=== PATIENT | male | born 1945 | race Caucasian/White ===

== ENCOUNTER 2016-08-08 06:53 | Outpatient (CLI) | payer MEDICARE, OTHER ==
[~2016-08-08] VITALS: Ht 167.6 cm; Wt 89.1 kg
--- NOTE | ~2016-08-08 | HEMODYNAMI ---
PATIENT:ROSIBEL MCCOY MEDICAL RECORD: [id number] : 47 LOCATION:[facility] ADMISSION DATE: 08/08/16 Generatedon:08/08/20169:22 Patient name: ROSIBEL MCCOY Patient #: [id number] : 1945 Date of study: 08/08/2016 Page: Of Hemodynamic Procedure Report Patient Data Patient Demographics Procedure consent was obtained First Name: ROSIBEL Gender: Male Last Name: DARIUS : 1945 Middle Initial: TERESA Age: 71 year(s) Patient #: [id number] Race: SSN: [id number] Additional ID: [id number] Contact details Address: [address] [place] [address] State: [place] City: [place] Zip code: [address] Past Medical History Allergies: No known allergies Admission Admission Data Admission Date: 08/08/2016 Admission Time: 6:53 Arrival Date: 08/08/2016 Arrival Time: 0:00 Admit Source: Other Insurance Payor: Medicare Height (in.): 67 BSA: 2.01 (m2) Height (cm.): 170.18 BMI: 30.85 (kg/m2) Weight (lbs.): 197 Weight (kg.): 89.36 Lab Results Lab Result Date: 08/08/2016 Lab Result Time: 0:00 Biochemistry Name Units Result Min Max BUN mg/dl 24 --(----)-* 7 18 Creatinine mg/dl 1.1 --(--*-)-- 0.6 1.3 CBC Name Units Result Min Max Hemoglobin g/dl 31.9 --(----)-* 13.5 17.5 Procedure Procedure Types Cath Procedure Diagnostic Procedure [facility] w/Coronaries PCI Procedure Coronary Stent Initial Miscellaneous Procedures Moderate Sedation up to 15 minutes Procedure Description Procedure Date Procedure Date: 08/08/2016 Procedure Start Time: 9:04 Procedure End Time: 9:19 Procedure Staff Name Function Tico Roberson MD Performing Physician Tima Puentes RT Scrub Doris Newman RN Nurse Tunde Lagunas RT Professional Skateboarder Shirin Pinzon RT Monitor Procedure Data Cath Procedure Fluoroscopy Diagnostic fluoroscopy Total fluoroscopy Time: 2.7 time: 2.7 min min Diagnostic fluoroscopy Total fluoroscopy dose: 288 dose: 288 mGy mGy Contrast Material Contrast Material Type Amount (ml) Isovue 300 87 Entry Location Entry Primary Successful Side Size Upsize Upsize Entry Closure Succes sful Closure Location (Fr) 1 (Fr) 2 (Fr) Remarks Device Remarks Femoral Right 5 Fr 6 Fr artery Short Estimated blood loss: 10 ml Diagnostic catheters Device Type Used For End Catheter Placement Cordis 5Fr Pigtail Procedure Catheter (MP) Cordis 5Fr JL 4.0 Procedure Catheter (MP) Cordis 5Fr 3DRC Catheter Procedure (MP) Procedure Complications No complications Procedure Medications Medication Administration Route Dosage Oxygen NC 2 l/min Heparin Flush Bag added to field 2 bags (1000units/500ml NS) Lidocaine 2% added to field 20 Versed I.V. 1 mg Fentanyl I.V. 50 mcg Versed I.V. 0.5 mg Fentanyl I.V. 25 mcg Heparin Bolus I.V. 4000 units Hemodynamics Rest BSA: 2.01 (m2) HGB: 31.9 (g/dl) O2 Consumption: Estimated: 273.36 (ml/min) O2 Co nsumption indexed: Estimated:136 (ml/min/m) Heart Rate: 0 (bpm) Snapshots Pre Cath Intra NCS Post Cath Vital Signs Time Heart Resp SPO2 NIBP (mmHg) Rhythm Pain Sedation Rate (ipm) (%) Status Level (bpm) 8:49:27 58 22 97 Measuring NSR 0 (11) 10(A) , No pain 8:50:21 57 19 97 189/93(112) NSR 0 (11) 10(A) , No pain 8:55:01 56 16 97 195/93(155) NSR 0 (11) 10(A) , No pain 8:59:29 56 18 96 165/90(139) NSR 0 (11) 10(A) , No pain 9:03:47 55 28 95 160/92(124) NSR 0 (11) 9(A) , No pain 9:08:04 59 17 96 149/99(122) NSR 0 (11) 9(A) , No pain 9:12:19 61 16 96 148/93(110) NSR 0 (11) 9(A) , No pain 9:17:19 65 20 95 Measuring NSR 0 (11) 9(A) , No pain 9:17:23 65 21 96 134/90(108) NSR 0 (11) 9(A) , No pain Medications Time Medication Route Dose Verified Delivered Reason Notes Effectiveness by by 8:47:50 Oxygen NC 2 Tico Doris Per physician l/min Karol Newman RN 8:47:57 Heparin Flush added 2 [place] used for Bag to bags Karol Roberson MD procedure (1000units/500ml field NS) 8:48:04 Lidocaine 2% added 20ml [place] used for to vial Karol Roberson MD procedure field 9:00:58 Versed I.V. 1 mg Tico Doris for sedation Karol Newman RN 9:01:14 Fentanyl I.V. 50 Tico Doris for sedation mcg Karol Newman RN 9:03:28 Versed I.V. 0.5 Tico Doris for sedation mg Karol Newman RN 9:03:36 Fentanyl I.V. 25 Tico Doris for sedation mcg Karol Newman RN 9:08:56 Heparin Bolus I.V. 4000 Tico Doris for dose units Karol Newman RN anticoagulation verified wt dr roberson Procedure Log Time Note 8:39:15 Arrival Date: 08/08/2016 12:00:00 AM 8:39:21 Admit Source: Other 8:39:47 Patient Height : 170.18 inches 8:40:03 Patient Weight : 89.36 lbs 8:40:04 Insurance Payor : Medicare 8:41:47 Diagnostic Cath status Elective 8:41:52 Tunde MOFFETT(R) sent for patient. Start room use. 8:41:53 Time tracking: Regular hours 8:42:01 Plan of Care:Hemodynamics will remain stable., Cardiac rhythm will remain stable., Comfort level will be maintained., Respiratory function will remain adequate., Patient/ family verbilizes understanding of procedure., Procedure tolerated without complication., Recovers from procedure without complications.. 8:42:15 Patient received from Outpatients to CCL 3 Alert and oriented. Tansferred to table in Supine position. 8:42:16 Warm blankets applied, and radha hugger turned on for patient comfort. 8:42:16 Correct patient and procedure confirmed by team. 8:42:19 Signed procedure consent form obtained from patient. 8:42:33 H&P Date Dictated: 08/06/2016 Within 30 days and on chart., H&P Addendum completed by physician on day of procedure. (MUST COMPLETE FOR ALL OUTPATIENTS). 8:42:38 Pre-procedure instructions explained to patient. 8:42:41 Family in waiting room. 8:42:43 Patient NPO since Midnight. 8:42:52 Patient allergic to No known allergies 8:43:35 Is the patient allergic to Iodine/contrast media? No. 8:43:38 Is patient on blood thinner?Yes 8:43:41 ACC The patient was administered the following blood thiners within the last 24 hours: ACCPlavix 8:43:43 Patient diabetic? Yes. 8:43:45 If diabetic: On Metformin? No 8:43:50 Snore? Yes 8:44:11 Patient pain scale 0/10 ?. 8:44:22 IV patent on arrival in left hand with 0.9% NaCl at KVO. 8:45:06 Lab Result : Creatinine 1.1 mg/dl 8:45:06 Lab Result : BUN 24 mg/dl 8:45:06 Lab Result : Hemoglobin 31.9 g/dl 8:45:11 Lab results completed and on chart. 8:45:15 Right groin area was prepped with chlora-prep and draped in sterile fashion 8:45:20 Sharps counted by scrub and verified by R.N. 8:46:06 Sleep apnea? No 8:46:13 Dentures? No ? 8:47:38 Vital chart was started 8:47:39 ECG and BP/O2 sat monitors applied to patient. 8:47:50 Baseline sample Acquired. 8:47:50 Oxygen 2 l/min NC was given by Doris Newman RN; Per physician; 8:47:57 Heparin Flush Bag (1000units/500ml NS) 2 bags added to field was given by Tico Roberson MD; used for procedure; 8:47:57 Full Disclosure recording started 8:48:04 Lidocaine 2% 20ml vial added to field was given by Tico Roberson MD; used for procedure; 8:54:14 Physician paged 9:00:26 Physician arrived 9:00: --------ALL STOP TIME OUT------ 9:00:27 Final Timeout: patient, procedure, and site verified with staff and physician. All members of the team are in agreement. 9:00:30 Right groin site verified by team. 9:00:33 Physical assessment completed. ASA score P 2 - A patient with mild systemic disease as per Tico Roberson MD. 9:00:37 Sedation plan: IV Moderate Sedation Versed, Fentanyl 9:00:42 Zero performed for pressure channel P1 9:00:51 Zero performed for pressure channel P1 9:00:58 Versed 1 mg I.V. was given by Doris Newman RN; for sedation; 9:01:14 Fentanyl 50 mcg I.V. was given by Doris Newman RN; for sedation; 9:03:08 Use device set Femoral Dx 9:03:10 Acist Syringe opened to sterile field. 9:03:10 Bag Decanter opened to sterile field. 9:03:11 Cardinal Cath Pack opened to sterile field. 9:03:11 Terumo 5Fr [place] Sheath opened to sterile field. 9:03:12 St Campbell 260cm J .035 wire opened to sterile field. 9:03:13 Acist Hand Control opened to sterile field. 9:03:14 Acist Manifold opened to sterile field. 9:03:14 Cordis Infinity 5Fr Multipack catheter opened to sterile field. 9:03:15 Tegaderm 4 x 4 opened to sterile field. 9:03:18 Procedure started. 9:03:28 Versed 0.5 mg I.V. was given by Doris Newman RN; for sedation; 9:03:36 Fentanyl 25 mcg I.V. was given by Doris Newman RN; for sedation; 9:04:05 Local anesthetic to right femoral artery with Lidocaine 2% by Tico Roberson MD.INITIAL ACCESS ONLY 9:04:17 A 5 Fr sheath was inserted into the Right Femoral artery 9:05:05 A Cordis 5Fr Pigtail Catheter (MP) was advanced over the wire and used for Procedure. 9:05:09 LV gram done using PLATT 9:05:15 EF : 55 % 9:05:18 Catheter removed. 9:05:23 A Cordis 5Fr JL 4.0 Catheter (MP) was advanced over the wire and used for Procedure. 9:05:47 LCA angiography performed. 9:06:34 Catheter removed. 9:06:45 A Cordis 5Fr 3DRC Catheter (MP) was advanced over the wire and used for Procedure. 9:08:12 Terumo 6Fr [place] Sheath opened to sterile field. 9:08:13 [employer] BasixCompak Inflation Kit opened to sterile field. 9:08:14 Gloria Whisper J 300cm 0.014 guide wire opened to sterile field. 9:08:17 Catheter removed. 9:08:25 Proceeding to intervention. 9:08:50 Procedure type changed to Cath procedure, Diagnostic procedure, LHC, LHC w/Coronaries, PCI procedure, Coronary Stent Initial, Miscellaneous Procedures, Moderate Sedation up to 15 minutes 9:08:56 Heparin Bolus 4000 units I.V. was given by Doris Newman RN; for anticoagulation; dose verified wt dr roberson 9:09:16 Sheath upsized to a 6 Fr Short. 9:12:16 Medtronic Launcher 6Fr EBU 4.5 guide catheter opened to sterile field. 9:12:30 6 Fr ebu 4.5 guide catheter was inserted over the wire 9:12:34 whis wire advanced. 9:13:43 Inflation Number: 1 A Medtronic Resolute 2.5 X 12 stent was prepped and advanced across the Mid LAD. The stent was deployed at 19 MARQUEZ for 0:10 (min:sec). 9:14:00 Vascade 6/7 Fr Closure Device opened to sterile field. 9:14:07 Guide catheter removed. 9:14:18 Procedure ended.(Physican Out) 9:16:16 Fluoroscopy time 02.70 minutes. 9:16:23 Flurop Dose total: 288 9:16:23 Fluoroscopy dose: 288 mGy 9:16:34 Contrast amount:Isovue 300 87ml. 9:16:36 Sharps counted by scrub and verified by R.N. 9:16:38 Insertion/operative site no bleeding no hematoma. 9:16:42 Post-op/insertion site Right Femoral artery dressed using a 4 x 4 and Tegaderm. 9:16:44 Post Procedure Pulses reassessed and unchanged 9:16:48 Post-procedure physical assessment completed. ASA score P 2 - A patient with mild systemic disease as per Tico Roberson MD. 9:16:52 Post procedure rhythm: unchanged. 9:16:55 Estimated blood loss: 10 ml 9:16:57 Post procedure instruction explained to patient.Patient verbalizes understanding. 9:17:07 Procedure and supply charges have been captured, reviewed, submitted and are correct. 9:19:09 Procedure Complication : No complications 9:19:12 Vital chart was stopped 9:19:12 See physician's report for complete and final results. 9:19:14 Report given to Outpatients. 9:19:21 Patient transfered to Outpatients with Stretcher. 9:19:24 Procedure ended. 9:19:24 Full Disclosure recording stopped 9:19:28 End room use (Document Last) Intervention Summary Intervention Notes Time ActionType Lesion and Equipment Action# Pressure Duration Attributes Used 9:13:43 Place stent Mid LAD Medtronic 1 19 00:10 Resolute 2.5 X 12 stent Device Usage Item Name Manufacture Quantity Catalog Hospital Part Current Minima l Lot# / Number Charge Number Stock Stock Serial# Code Acist Acist 1 [id number] [id number] 626121 188879 20 Syringe Medical Systems Inc Bag Microtek 1 [id number] 541718 48799 759218 5 DecNexMed Medical Inc. Cardinal Cardinal 1 [id number] 280400 95443 557432 5 Cath Pack Health Terumo 5Fr Terumo 1 [id number] 035053 211900 114374 [address] Campbell 1 [id number] 863565 931158 012565 30 260cm J .035 wire Acist Hand Acist 1 69823 735891 163836 142433 5 Control Medical Systems Inc Acist Acist 1 50188 630329 941628 092313 5 Manifold Medical Systems Inc Cordis Cardinal 1 [id number] 676375 33272 044961 30 VuCast Media 5Fr Multipack catheter Tegaderm 4 3M 1 1626W 742593 242680 656676 5 x 4 Cordis 5Fr Cardinal 1 681263 5 Pigtail Health Catheter (MP) Cordis 5Fr Cardinal 1 928974 5 JL 4.0 Health Catheter (MP) Cordis 5Fr Cardinal 1 199783 5 3DRC Health Catheter (MP) Terumo 6Fr Terumo 1 [id number] 041280 617375 534272 40 [place] Sheath [facility] 1 [id number] 845803 801853 031761 15 BasixRidePal Medical Inflation Kit Gloria Gloria 1 [id number] 520561 510609 153355 5 Whisper J Vascular 300cm 0.014 guide wire Medtronic Medtronic 1 [id number] 905389 59979 656867 0 Launcher 6Fr EBU 4.5 guide catheter Medtronic Medtronic 1 [id number] 157869 244055 7 [id number] Resolute 2.5 X 12 stent Vascade 12/05 Cardiva 1 [id number] 656721 251918 375653 5 Fr Closure Medical, Device Inc. Signature Audit [facility] Time Signature Unsigned Intra-Procedure 08/08/2016 Shirin Pinzon 9:21:46 AM RT(R) Signatures Monitor : Shirin Pinzon Signature : RT Date : Time : [address] [place] [address]
[~2016-08-08 06:53] MED LIST: BAYER ASPIRIN325 MG PO; BAYER CHEWABLE81 MG PO; CARDURA8 MG PO; CO Q-10100 MG PO; COZAAR100 MG PO; FISH OIL 500 MG1 CAP PO; GLIMEPIRIDE4 MG PO; HYDROCHLOROTHIA25 MG PO; HYDROCODON-ACE1 EAC6 PO; ISOSORBIDE MONO60 M1 PO; LYRICA200 MG PO; MULTIPLE VITAMI1 TA1 PO; NEURONTIN600 MG PO; PLAVIX75 MG PO; PRAVACHOL40 MG PO; RITALIN10 MG PO; RITALIN20 MG PO; TOPROL XL200 MG PO; TRAZODONE HCL150 MG PO; VITAMIN A10000 UNIT PO; VITAMIN B-121000 MCG PO; VITAMIN C1000 MG PO; VITAMIN D10000 UNI1 PO
[2016-08-08] MEDS ORDERED: ZOLOFT100 MG PO (07:19)
[2016-08-08 07:25] VITALS: BP 155/76; Ht 167.6 cm; Wt 89.1 kg
[2016-08-08 07:28] LABS: BASOPHILS 0.5 % (0.0-2.0); EOSINOPHILS 8.4 % (0-7); HEMATOCRIT 31.9 % (42.0-54.0); HEMOGLOBIN 10.7 g/dL (13.5-17.5); IMMATURE GRANULOCYTES 0.3 % (0-5); LYMPHOCYTES 25.5 % (15-50); MCH 32.1 pg (26.0-34.0); MCHC 33.5 g/dL (31.0-37.0); MCV 95.8 fL (80.0-100.0); MEAN PLATELET VOLUME 11.4 fL (7.4-10.4); NEUTROPHILS 54.3 % (40-80); RBC 3.33 10x6/uL (4.20-6.10); RDW 13.6 % (11.5-14.5); WBC 3.8 10x3/uL (4.8-10.8)
[2016-08-08 07:41] LABS: PLATELET COUNT 138 10x3/uL (130-400)
[2016-08-08 07:44] LABS: ANION GAP 13.9 mmol/L (8-16); CALCIUM 8.9 mg/dL (8.5-10.1); CARBON DIOXIDE 24.8 mmol/L (21.0-32.0); CREATININE - SERUM 1.1 mg/dL (0.6-1.3); POTASSIUM - SERUM 3.7 mmol/L (3.5-5.1)
--- NOTE | 2016-08-08 09:45 | NUR ---
0945 HR 58 BP 157/80 CHEST PAIN IS DENIED. 6 FR VASCADE R/GROIN CDI NO BLEEDING NO HEMATOMA NOTED. INSTRUCTED PATIENT TO KEEP HEAD FLAT ON PILLOW WITH RLE STRAIGHT.
--- NOTE | 2016-08-08 10:15 | NUR ---
1015 VSS WITH CHEST PAIN DENIED TOLERATING ORAL FLUIDS WITH NAUSEA DENIED. 6 FR VASCADE R/GROIN CDI NO BLEEDING NO HEMATOMA NOTED WILL MONITOR
--- NOTE | 2016-08-08 10:41 | NUR ---
NO CHANGE IN ASSESSMENT VSS PATIENT SLEEPING QUIELTY WITH EYES CLOSED NO DISTRESS
--- NOTE | 2016-08-08 11:09 | NUR ---
6 FR VASCADE R/GROIN CDI NO BLEEDING NO HEMATOMA NOTED CHEST PAIN IS DENIED WITH VSS WILL MONITOR
--- NOTE | 2016-08-08 12:00 | NUR ---
1200 VSS WITH CHEST PAIN DENIED FAMILY AT SIDE 1300 PIV REMOVED WITH DRESSING APPLIED. 6 FR VASCADE R/GROIN CDI NO BLEEDING NO HEMATOMA NOTED. PATIENT UP TO GET DRESSED FOR DISCHARGE
--- NOTE | 2016-08-08 13:28 | NUR ---
VERBAL AND WRITTEN DISCHARGE GONE OVER WITH PATIENT AND BOTH VERBALIZED UNDERSTANDING. PATIENT HAS ORDERES TO RETURN NEXT WED FOR ANOTHER PROCEDURE. OFFICE NOTIFIED LEFT VIA WC TO PARKING FOR TO DRIVE HOME
--- NOTE | 2016-08-09 13:59 | OP ---
PATIENT NAME: ROSIBEL MCCOY MEDICAL RECORD: [id number] :47 LOCATION:[facility] ADMISSION DATE: SURGEON: LENORE MONTERO MD DATE OF OPERATION: 08/08/2016 PROCEDURES: 1. PTCA stent LAD. 2. Left heart catheterization. 3. Selective coronary angiography. 4. Left ventriculogram. INDICATION: Angina and coronary artery disease. PROCEDURE IN DETAIL: After informed consent was obtained and after detailed explanation of risks, benefits as well as alternative therapies, the patient elected to proceed with angiogram and angioplasty. The right femoral area is prepped and draped in normal sterile fashion. The right femoral artery was cannulated via modified Seldinger technique with placement of 6-Congolese sheath. All catheters exchanged through this sheath. FINDINGS: The left ventriculogram was performed in standard 30-degree PLATT view, reveals good cardiac wall motion throughout all segments. Overall ejection fraction estimated at 55% to 60%. SELECTIVE CORONARY ANGIOGRAPHY: 1. Left main has no significant angiographic disease. 2. Left anterior descending has previously placed stents, these are widely patent; however, there is 90% stenosis after the previously placed stents. 3. The left circumflex has moderate irregularities, but no flow-limiting stenosis. 4. The right coronary has previously placed stents, these are widely patent. However, there is a new 80% to 90% stenosis in the distal vessel. PTCA STENT OF THE LAD: The stent used was a 2.5 x 12 mm Resolute. Result was 0% residual stenosis. OVERALL IMPRESSION: Successful percutaneous transluminal coronary angioplasty stent of the left anterior descending going from 90% initial stenosis to 0% residual. PLAN: For PTCA stent of the RCA in the near future. TRANSINT:[id number] Voice Confirmation ID: [id number] DOCUMENT ID: [id number] LENORE MONTERO MD at 1359 CC: [id number] DICTATION DATE: 08/08/16917 SAIL MAKER: 08/08/1656 [facility] CLI 08/08/[address] [address]
== END 2016-08-08 13:31 | disposition home or self-care (01) ==
LOC: D.CATH 06:53
PROVIDERS: Internal Medicine Interventional Cardiology
DX: I25.119 Atherosclerotic heart disease of native coronary artery with unspecified angina pectoris (principal); R06.02 Shortness of breath; E11.9 Type 2 diabetes mellitus without complications
CPT/HCPCS: 93458; C9600

== ENCOUNTER 2016-08-15 07:28 | Outpatient (CLI) | payer MEDICARE, OTHER ==
[~2016-08-15] VITALS: Ht 170.2 cm; Wt 88.6 kg
--- NOTE | ~2016-08-15 | HEMODYNAMI ---
PATIENT:ROSIBEL MCCOY MEDICAL RECORD: [id number] : 47 LOCATION:[facility] ADMISSION DATE: 08/15/16 Generatedon:08/15/20169:44 Patient name: ROSIBEL MCCOY Patient #: [id number] : 1945 Date of study: 08/15/2016 Page: Of Hemodynamic Procedure Report Patient Data Patient Demographics Procedure consent was obtained First Name: ROSIBEL Gender: Male Last Name: DARIUS : 1945 Middle Initial: TERESA Age: 71 year(s) Patient #: [id number] Race: SSN: [id number] Additional ID: [id number] Contact details Address: [address] [place] [address] State: [place] City: [place] Zip code: [address] Past Medical History Allergies: No known allergies Admission Admission Data Admission Date: 08/15/2016 Admission Time: 7:28 Lab Results Lab Result Date: 08/15/2016 Lab Result Time: 0:00 Biochemistry Name Units Result Min Max BUN mg/dl 22 --(----)-* 7 18 Creatinine mg/dl 1 --(--*-)-- 0.6 1.3 CBC Name Units Result Min Max Hemoglobin g/dl 11.4 *-(----)-- 13.5 17.5 Procedure Procedure Types Cath Procedure Diagnostic Procedure [facility] PCI Procedure Coronary Stent Initial Miscellaneous Procedures Moderate Sedation up to 15 minutes Procedure Description Procedure Date Procedure Date: 08/15/2016 Procedure Start Time: 9:28 Procedure End Time: 9:36 Procedure Staff Name Function Tico Roberson MD Performing Physician Dennis Barron RN Nurse Tima Puentes RT Monitor Farhat Hawley RT Scrub Procedure Data Cath Procedure Fluoroscopy Diagnostic fluoroscopy Total fluoroscopy Time: 1.9 time: 1.9 min min Diagnostic fluoroscopy Total fluoroscopy dose: 168 dose: 168 mGy mGy Contrast Material Contrast Material Type Amount (ml) Isovue 300 48 Entry Location Entry Primary Successful Side Size Upsize Upsize Entry Closure Succes sful Closure Location (Fr) 1 (Fr) 2 (Fr) Remarks Device Remarks Femoral Right 7 Fr Exoseal artery Short Procedure Complications No complications Procedure Medications Medication Administration Route Dosage Oxygen NC 2 l/min Lidocaine 2% added to field 20 Heparin Flush Bag added to field 2 bags (1000units/500ml NS) 0.9% NaCl I.V. 100 ml/hr Versed I.V. 1 mg Fentanyl I.V. 50 mcg Heparin Bolus I.V. 4000 units Versed I.V. 0.5 mg Fentanyl I.V. 25 mcg Hemodynamics Rest HGB: 11.4 (g/dl) Heart Rate: 42 (bpm) Snapshots Pre Cath Intra NCS Post Cath Vital Signs Time Heart Resp SPO2 etCO2 SJ6hbes NIBP (mmHg) Rhythm Pain Sedation Rate (ipm) (%) (mmHg) (mmHg) Status Level (bpm) 9:15:15 61 16 98 0 0 167/76(98) NSR 0 (11) 10(A) , No pain 9:20:30 56 19 96 0 0 153/74(101) NSR 0 (11) 10(A) , No pain 9:24:53 55 17 98 0 0 141/76(98) NSR 0 (11) 10(A) , No pain 9:29:09 57 17 95 0 0 149/80(132) NSR 0 (11) 9(A) , No pain 9:33:16 58 16 98 0 0 133/86(101) NSR 0 (11) 9(A) , No pain 9:41:38 63 16 96 0 0 138/71(110) NSR 0 (11) 10(A) , No pain 9:43:25 61 13 96 0 0 147/77(106) NSR 0 (11) 10(A) , No pain Medications Time Medication Route Dose Verified Delivered Reason Notes Effectiveness by by 9:14:11 Oxygen NC 2 Tico Collins used for l/min Karol Barron radius corner machine operator 9:14:18 Lidocaine 2% added 20ml Tico Doshi for local to vial Karol Roberson MD anesthetic field 9:14:28 Heparin Flush added 2 Tico Doshi used for Bag to bags Karol Roberson MD procedure (1000units/500ml field NS) 9:14:59 0.9% NaCl I.V. 100 Tico Collins Per physician ml/hr Karol Barron RN 9:24:04 Fentanyl I.V. 50 Tico Collins for sedation mcg Karol Barron RN 9:24:58 Versed I.V. 1 mg Tico Collins for sedation Karol Barron RN 9:28:39 Heparin Bolus I.V. 4000 Tico Collins for verifie d units Karol Barron RN anticoagulation with dr roberson 9:30:42 Versed I.V. 0.5 Tico Collins for sedation mg Karol Barron RN 9:30:46 Fentanyl I.V. 25 Tico Collins for sedation mcg Karol Barron RN Procedure Log Time Note 8:58:57 ACC Patient presents with Stable Angina CCS Anginal Class 2--Slight limitation of ordinary activity. 8:59:02 Diagnostic Cath status Elective 8:59:05 Dennis Barron RN sent for patient. Start room use. 8:59:53 Time tracking: Regular hours 8:59:57 Plan of Care:Hemodynamics will remain stable., Cardiac rhythm will remain stable., Comfort level will be maintained., Respiratory function will remain adequate., Patient/ family verbilizes understanding of procedure., Procedure tolerated without complication., Recovers from procedure without complications.. 9:07:45 Patient received from Pre/Post Procedure Room to CCL 1 Alert and oriented. Tansferred to table in Supine position. 9:07:46 Warm blankets applied, and radha hugger turned on for patient comfort. 9:07:47 Correct patient and procedure confirmed by team. 9:07:48 Signed procedure consent form obtained from patient. 9:07:49 ECG and BP/O2 sat monitors applied to patient. 9:13:56 Vital chart was started 9:14:11 Oxygen 2 l/min NC was given by Dennis Barron RN; used for procedure; 9:14:18 Lidocaine 2% 20ml vial added to field was given by Tico Roberson MD; for local anesthetic; 9:14:28 Heparin Flush Bag (1000units/500ml NS) 2 bags added to field was given by Tico Roberson MD; used for procedure; 9:14:59 0.9% NaCl 100 ml/hr I.V. was given by Buffie Barron RN; Per physician; 9:15:46 Baseline sample Acquired. 9:15:52 Rhythm: sinus rhythm 9:15:53 Full Disclosure recording started 9:17:02 H&P Date Dictated: 08/15/2016 Within 30 days and on chart., H&P Addendum completed by physician on day of procedure. (MUST COMPLETE FOR ALL OUTPATIENTS). 9:17:04 Pre-procedure instructions explained to patient. 9:17:05 Pre-op teaching completed and patient verbalized understanding. 9:17:06 Family in waiting room. 9:17:09 Patient NPO since Midnight. 9:17:17 Patient allergic to No known allergies 9:17:20 Is the patient allergic to Iodine/contrast media? No. 9:17:24 Is patient on blood thinner?Yes 9:17:27 ACC The patient was administered the following blood thiners within the last 24 hours: ACCPlavix 9:17:31 Patient diabetic? Yes. 9:17:32 If diabetic: On Metformin? No 9:17:33 ----Pre-sedation anethsthesia assessment.---- 9:17:35 Previous problem with sedation/anesthesia? No ? 9:17:38 Snore? Yes 9:17:39 Sleep apnea? No 9:17:43 Deviated septum? No 9:17:44 Opens mouth fully? Yes 9:17:46 Sticks out tongue? Yes 9:17:48 Airway obstruction? No ? 9:17:52 Dentures? No ? 9:17:54 Pre procedure: right dorsailis pedis pulse 1+ Palpable, but thready & weak; easily obliterated 9:17:57 Patient pain scale 0/10 ?. 9:18:05 IV patent on arrival in left forearm with 0.9% NaCl at 10ml/hr. 9:21:55 Lab Result : BUN 22 mg/dl 9::55 Lab Result : Creatinine 1 mg/dl 9:21:55 Lab Result : Hemoglobin 11.4 g/dl 9:21:59 Lab results completed and on chart. 9:22:02 Right groin area was prepped with chlora-prep and draped in sterile fashion 9:22:03 Alarms reviewed by R. N. 9:22:03 Sharps counted by scrub and verified by R.N. 9:23: --------ALL STOP TIME OUT------ :: Final Timeout: patient, procedure, and site verified with staff and physician. All members of the team are in agreement. 9::59 Right groin site verified by team. 9:24:02 Physical assessment completed. ASA score P 2 - A patient with mild systemic disease as per Tico Roberson MD. 9:24:04 Fentanyl 50 mcg I.V. was given by Dennis Barron RN; for sedation; ::06 Sedation plan: IV Moderate Sedation Versed, Fentanyl 9::58 Versed 1 mg I.V. was given by Dennis Barron RN; for sedation; ::06 Use device set Femoral PCI 9:28:08 Acist Syringe opened to sterile field. 9:28:08 Acist Hand Control opened to sterile field. 9:28:09 Bag Decanter opened to sterile field. 9:28:09 Medline Cath Pack opened to sterile field. 9:28:10 St Campbell 260cm J .035 wire opened to sterile field. 9:28:11 Merit BasixCompak Inflation Kit opened to sterile field. 9:28:12 Acist Manifold opened to sterile field. 9:28:25 Zero performed for pressure channel P1 9:28:39 Heparin Bolus 4000 units I.V. was given by Dennis Barron RN; for anticoagulation; verified with dr roberson 9:28:42 Gloria Whisper J 300cm 0.014 guide wire opened to sterile field. 9:28:43 Terumo 7Fr [place] Sheath opened to sterile field. 9:28:43 Medtronic Launcher 7Fr AR 2.0 SH guide catheter opened to sterile field. 9:28:49 Procedure started. 9:28:55 Local anesthetic to right femoral artery with Lidocaine 2% by Tico Roberson MD.INITIAL ACCESS ONLY 9:29:05 A 7 Fr Short sheath was inserted into the Right Femoral artery 9:29:19 ACC PCI Site: mRCA has 80% stenosis. 9:29:22 ACC Pre-intervention MARTELL Flow is 3. 9:29:29 7 Fr AR 2 SH guide catheter was inserted over the wire 9:29:33 WHISPER wire advanced. 9:30:42 Versed 0.5 mg I.V. was given by Dennis Barron RN; for sedation; 9:30:46 Fentanyl 25 mcg I.V. was given by Dennis Barron RN; for sedation; 9:31:04 Wire removed. 9:31:11 Guide Catheter removed. unable to cannulate vessel. 9:32:14 Medtronic Launcher 7Fr HS II SH guide catheter opened to sterile field. 9:32:23 7 Fr HS 11 SH guide catheter was inserted over the wire 9:32:27 WHISPER wire advanced. 9:34:04 Inflation Number: 1 A Medtronic Resolute 3.0 X 9 stent was prepped and advanced across the Mid RCA. The stent was deployed at 21 MARQUEZ for 0:12 (min:sec). 9:34:23 Stent catheter was removed intact over wire. 9:34:24 Wire removed. 9:34:24 Guide catheter removed. 9:34:30 Contrast amount:Isovue 300 48ml. 9:34:41 Sheath removed intact; hemostasis achieved with Exoseal to the Right Femoral artery. 9:34:48 Cordis 7Fr Exoseal opened to sterile field. 9:34:49 Tegaderm 4 x 4 opened to sterile field. 9:35:15 Procedure ended.(Physican Out) 9:35:24 Procedure type changed to Cath procedure, Diagnostic procedure, LHC, PCI procedure, Coronary Stent Initial, Miscellaneous Procedures, Moderate Sedation up to 15 minutes 9:35:53 Fluoroscopy time 01.90 minutes. 9:35:58 Flurop Dose total: 168 9:35:58 Fluoroscopy dose: 168 mGy 9:35:59 Sharps counted by scrub and verified by R.N. 9:36:00 Insertion/operative site no bleeding no hematoma. 9:36:03 Post-op/insertion site Right Femoral artery dressed using a 4 x 4 and Tegaderm. 9:36:06 Post right femoral artery:stable 9:36:07 Post Procedure Pulses reassessed and unchanged 9:36:10 Post procedure: right dorsailis pedis pulse 1+ Palpable, but thready & weak; easily obliterated. 9:36:15 Post procedure rhythm: sinus rhythm 9:36:16 Post procedure instruction explained to patient.Patient verbalizes understanding. 9:36:17 Procedure and supply charges have been captured, reviewed, submitted and are correct. 9:36:22 Procedure Complication : No complications 9:36:24 Vital chart was stopped 9:36:26 See physician's report for complete and final results. 9:36:28 Report given to Pre/Post Procedure Room. 9:36:31 Patient transfered to Pre/Post Procedure Room with Stretcher. 9:36:33 Procedure ended. 9:36:33 Full Disclosure recording stopped 9:36:36 End room use (Document Last) Intervention Summary Intervention Notes Time ActionType Lesion and Equipment Action# Pressure Duration Attributes Used 9:34:04 Place stent Mid RCA Medtronic 1 21 00:12 Resolute 3.0 X 9 stent Device Usage Item Name Manufacture Quantity Catalog Hospital Part Current Minimal Lot# / Number Charge Number Stock Stock Serial# Code Acist Acist 1 97727 049734 820595 718186 20 Syringe Medical Systems Inc Acist Hand Acist 1 71606 613932 954415 684308 5 Control Medical Systems Inc Bag Microtek 1 2002S 947731 92256 143062 5 [employer] Medline Cardinal 1 [id number] 966782 93484 019661 5 Cath Mantrii, Inc. [facility] St Campbell 1 865453 732134 729169 292509 30 260cm J .035 wire Merit Merit 1 [id number] 034223 077294 765634 15 [employer] Medical Inflation Kit Acist Acist 1 47394 732390 913753 546922 5 Manifold Medical Systems Inc Gloria Gloria 1 [id number] 108163 621158 561870 5 Whisper J Vascular 300cm 0.014 guide wire Terumo 7Fr Terumo 1 [id number] 242936 903946 627462 5 [place] Sheath Medtronic Medtronic 1 [id number] 447824 042761 792558 0 Launcher 7Fr AR 2.0 SH guide catheter Medtronic Medtronic 1 [id number] 801056 236037 827199 0 Launcher 7Fr HS II SH guide catheter Medtronic Medtronic 1 [id number] 595912 252810 9 [id number] Resolute 3.0 X 9 stent Cordis 7Fr Cardinal 1 EX700 196199 420050 485417 5 iRidge Tegaderm 4 3M 1 1626W 434331 286500 213732 5 x 4 Signature Audit Crowder Stage Time Signature Unsigned Intra-Procedure 08/15/2016 Tima Puentes 9:43:58 AM RT(R) Signatures Monitor : Tima Puentes RT Signature : Date : Time : [address] [address]
[~2016-08-15 07:28] MED LIST changes: +ZOLOFT100 MG PO
[2016-08-15 07:54] VITALS: BP 143/74; Ht 170.2 cm; Wt 88.6 kg
[2016-08-15 08:09] LABS: BASOPHILS 0.5 % (0.0-2.0); EOSINOPHILS 7.9 % (0-7); HEMATOCRIT 34.1 % (42.0-54.0); HEMOGLOBIN 11.4 g/dL (13.5-17.5); IMMATURE GRANULOCYTES 0.5 % (0-5); LYMPHOCYTES 24.3 % (15-50); MCH 31.9 pg (26.0-34.0); MCHC 33.4 g/dL (31.0-37.0); MCV 95.5 fL (80.0-100.0); MEAN PLATELET VOLUME 10.9 fL (7.4-10.4); MONOCYTES 9.1 % (2-11); NEUTROPHILS 57.7 % (40-80); PLATELET COUNT 135 10x3/uL (130-400); RBC 3.57 10x6/uL (4.20-6.10); RDW 13.6 % (11.5-14.5); WBC 4.3 10x3/uL (4.8-10.8)
[2016-08-15 08:39] LABS: CALC OSMOLALITY 288 mosm/kg (275-300); CALCIUM 9.4 mg/dL (8.5-10.1); CARBON DIOXIDE 25.9 mmol/L (21.0-32.0); CHLORIDE - SERUM 105 mmol/L (98-107); GLUCOSE 150 mg/dL (74-106); POTASSIUM - SERUM 4.5 mmol/L (3.5-5.1); SODIUM 142 mmol/L (136-145); UREA NITROGEN 22 mg/dL (7-18); eGFR NON AFRICAN AMERICAN 78 mL/min (90-120)
--- NOTE | 2016-08-15 10:15 | NUR ---
1015 HR 68 CHEST PAIN DENIED BP 158/81 7 FR EXOSEAL R/GROIN CDI NO BLEEDING NO HEMATOMA NOTED INSTRUCTED PATIENT TO KEEP HEAD FLAT ON PILLOW WITH RLE STRAIGHT WILL MONITOR 1045 DR MONTERO AT BEDSIDE SPEAKING WITH FAMILY. PATIENT DENIED PAIN OR NEEDS R/GROIN CDI NO BLEEDING NO HEMATOMA NOTED WILL MONITOR
--- NOTE | 2016-08-15 11:10 | NUR ---
7 FR EXOSEAL R/GROIN CDI NO BLEEDING NO HEMATOMA NOTED. VSS WITH CHEST PAIN DENIED SANDWICH AND SODA TO BEDSIDE WITH ASSISTING
--- NOTE | 2016-08-15 11:52 | NUR ---
RESTING QUIETLY WITH VSS NO DISTRESS NOTED 7 FR EXOSEAL R/GROIN CDI
--- NOTE | 2016-08-15 12:30 | NUR ---
NO CHANGE IN ASSESSMENT PATIENT CONTINUES TO SLEEP WITH NO DISTRESS NOTED
--- NOTE | 2016-08-15 13:18 | NUR ---
CHEST PAIN DENIED VSS 7 FR EXOSEAL R/GROIN CDI NO BLEEDING NO HEMATOMA NOTED. AT SIDE
--- NOTE | 2016-08-15 13:25 | NUR ---
1325 PIV REMOVED WITH DRESSING APPLIED. PATIENT UP TO GET DRESSED FOR TRANSPORT HOME R/GROIN CDI NO BLEEDING NO HEMATOMA NOTED. CHEST PAIN IS DENIED 1345 VERBAL AND WRITTEN DISCHARGE GONE OVER WITH PATIENT AND . LEFT VIA WC TO PARKING FOR TO DRIVE HOME CHEST PAIN DENIED AND R/GROIN CDI
--- NOTE | 2016-08-24 08:46 | HP ---
PATIENT: ROSIBEL MUSA MEDICAL RECORD: [id number] ACCOUNT: [id number] LOCATION:[facility] : 47 ADMISSION DATE: 08/15/16 HISTORY AND PHYSICAL EXAMINATION ADMITTING DIAGNOSES: 1. Angina. 2. Coronary artery disease. 3. Recent percutaneous transluminal coronary angioplasty stent of the left anterior descending with concomitant disease of the right coronary artery. 4. Hypertension. 5. Hyperlipidemia. HISTORY OF PRESENT ILLNESS: Mr. Musa presented with anginal symptomatology, found to have 2-vessel coronary disease of the LAD and RCA, underwent successful PTCA stent of the LAD. He is now brought back for PTCA stent of the RCA in a staged fashion. PHYSICAL EXAMINATION: GENERAL APPEARANCE: Well-nourished, well-developed, appears stated age. Level of distress, comfortable. PSYCHIATRIC: Mental status, alert, normal affect. Orientation, oriented to time, place and person. EYES: Lids and conjunctiva, noninjected. No discharge, no pallor. ENT: Lips, teeth, gums, normal dentition. Oropharynx, no cyanosis, no pallor. NECK: Carotid arteries, bilateral normal upstroke, no bruits, no thrills. JUGULAR VEINS: No jugular venous pressure or distention. CERVICAL LYMPH NODES: Nontender, nonenlarged. THYROID: Not enlarged. Nontender. No nodules. LUNGS: Respiratory effort, unlabored. CHEST: Normal curvature. No thoracic deformity. No chest wall tenderness. Percussion, resonant. Auscultation, clear. No wheezes, no rales, no rhonchi. CARDIOVASCULAR: Precordial exam, nondisplaced. No heaves or pericardial thrills. Rate and rhythm, regular. Heart sounds, normal S1, normal S2. No S3, no gallop, no rub. Systolic murmur, not heard. Diastolic murmur, not heard. EXTREMITIES: No cyanosis, no edema. Peripheral pulses, full and equal in all extremities, except as noted. No bruits appreciated. ABDOMEN: Soft, nondistended. Normal aorta. No bruit. Nontender. No masses. Liver, nontender, no hepatomegaly. Spleen, nontender, no splenomegaly. MUSCULOSKELETAL: No joint tenderness. No joint swelling. No erythema. NEUROLOGICAL: Normal gait, normal strength, normal tone. SKIN: Warm and dry. REVIEW OF SYSTEMS: The patient reports easy bruising but reports no swollen glands. The patient reports no fever, no night sweats, no significant weight gain, no significant weight loss. No significant exercise tolerance. The patient reports no dry eyes, no irritation, no vision change. Patient reports no difficulty hearing and no ear pain. Patient reports no frequent nose bleeds or nose and sinus problems. Patient reports on arm pain on exertion. No shortness of breath while lying down. No history of heart murmur. Patient reports no cough, no wheezing or coughing up blood. Patient reports no abdominal pain, no vomiting. Normal appetite. No diarrhea and not vomiting blood. No nausea and no constipation. Patient reports no incontinence. No difficulty urinating. No hematuria. No increased frequency. Patient reports no muscle aches. No weakness, no arthralgias, no back pain. No swelling of the HISTORY AND PHYSICAL [id number] ROSIBEL MUSA extremities. Patient reports no abnormal mole, no jaundice, no rashes. Reports no loss of consciousness. No weakness and no numbness. No seizures, dizziness, or headaches. The patient reports no depression, no sleep disturbance, feeling safe in a relationship and no alcohol abuse. Patient reports on fatigue. Reports no runny nose or sinus pressure. No itching, no hives, and no frequent sneezing. OVERALL IMPRESSION: Anginal symptomatology with significant disease of the right coronary artery. We will proceed with percutaneous transluminal coronary angioplasty stent of the right coronary artery. TRANSINT:[id number] Voice Confirmation ID: [id number] DOCUMENT ID: [id number] LENORE MONTERO MD at 0846 CC: [id number] DICTATION DATE: 08/15/16 0938 PRESSED OR BLOWN GLASS WORKER: 08/15/16 1034 [facility] CLI 08/15/16 [place] [id number] [place] [id number]
--- NOTE | 2016-08-24 08:46 | OP ---
PATIENT NAME: ROSIBEL MCCOY MEDICAL RECORD: [id number] :47 LOCATION:D.[facility] ADMISSION DATE: SURGEON: LENORE MONTERO MD DATE OF OPERATION: 08/15/2016 PROCEDURES: 1. PTCA stent RCA. 2. Selective coronary angiography. INDICATION: Angina and coronary artery disease. PROCEDURE IN DETAIL: After informed consent was obtained and after detailed explanation of risks, benefits as well as alternative therapies, the patient elected to proceed with angiogram and angioplasty. The right femoral area was prepped and draped in normal sterile fashion. The right femoral artery was cannulated via modified Seldinger technique with placement of a 7-Divehi sheath. All catheters exchanged through this sheath. FINDINGS: The right coronary has a 70% to 80% stenosis distally. This was addressed with a 3.0 x 9 mm Resolute stent taken to 21 atmospheres. Result was 0% residual stenosis. OVERALL IMPRESSION: Successful percutaneous transluminal coronary angioplasty stent of the right coronary artery going from 70% to 80% initial stenosis to 0% residual. TRANSINT:[id number] Voice Confirmation ID: [id number] DOCUMENT ID: [id number] LENORE MONTERO MD at 0846 CC: [id number] DICTATION DATE: 08/15/16 0939 [place] ATTORNEY: 08/15/16 1707 [facility] CLI 08/15/[address] [address]
== END 2016-08-15 14:09 | disposition home or self-care (01) ==
LOC: D.CATH 07:28
PROVIDERS: Internal Medicine Interventional Cardiology
DX: I25.119 Atherosclerotic heart disease of native coronary artery with unspecified angina pectoris (principal); Z95.5 Presence of coronary angioplasty implant and graft; I10 Essential (primary) hypertension; E78.5 Hyperlipidemia, unspecified

== ENCOUNTER 2017-03-06 12:18 | Emergency (ER) | payer MEDICARE, OTHER ==
[2017-03-06 14:13] LABS: BASOPHILS 0.2 % (0-2); EOSINOPHILS 1.1 % (0-7); HEMATOCRIT 38.8 % (42.0-54.0); HEMOGLOBIN 12.9 g/dL (13.5-17.5); IMMATURE GRANULOCYTES 0.2 % (0-5); MCH 28.7 pg (26.0-34.0); MCHC 33.2 g/dL (31.0-37.0); MCV 86.4 fL (80.0-100.0); MEAN PLATELET VOLUME 11.1 fL (7.4-10.4); MONOCYTES 3.4 % (2-11); NEUTROPHILS 81.1 % (40-80); PLATELET COUNT 129 10x3/uL (130-400); RBC 4.49 10x6/uL (4.20-6.10); RDW 15.1 % (11.5-14.5); WBC 6.4 10x3/uL (4.8-10.8)
[2017-03-06 14:35] LABS: AMORPHOUS SEDIMENT >1+ /lpf (NONE SEEN); APPEARANCE CLEAR (CLEAR); BACTERIA FEW /hpf (NONE SEEN); BILIRUBIN NEGATIVE (NEGATIVE); COLOR YELLOW (YELLOW); EPITHELIAL CELLS OCC /hpf (0-5); GLUCOSE NEGATIVE (NEGATIVE); GRANULAR CAST RARE /lpf (NONE SEEN); KETONE NEGATIVE (NEGATIVE); LEUKOCYTE ESTERASE NEGATIVE (NEGATIVE); MUCUS <1+ /lpf (NONE SEEN); NITRITE NEGATIVE (NEGATIVE); PROTEIN 1+ mg/dL (NEGATIVE); UROBILINOGEN NORMAL (NORMAL)
[2017-03-06 14:36] LABS: ALBUMIN 3.7 g/dL (3.4-5.0); ALKALINE PHOSPHATASE 55 U/L (46-116); ALT (SGPT) 43 U/L (10-68); CALC OSMOLALITY 282 mosm/kg (275-300); CALCIUM 8.9 mg/dL (8.5-10.1); CARBON DIOXIDE 25.7 mmol/L (21.0-32.0); CHLORIDE - SERUM 102 mmol/L (98-107); GLUCOSE 151 mg/dL (74-106); PROTEIN - SERUM 7.3 g/dL (6.4-8.2); SODIUM 139 mmol/L (136-145); UREA NITROGEN 18 mg/dL (7-18); eGFR NON AFRICAN AMERICAN 78 mL/min (90-120)
== END 2017-03-06 14:56 | disposition home or self-care (01) ==
LOC: D.ER 12:18
PROVIDERS: Emergency Medicine
DX: I10 Essential (primary) hypertension (principal); Z86.73 Personal history of transient ischemic attack (TIA), and cerebral infarction without residual deficits; E11.9 Type 2 diabetes mellitus without complications; Z85.46 Personal history of malignant neoplasm of prostate

== ENCOUNTER 2017-05-06 05:27 | Day surgery (SDC) | payer MEDICARE, OTHER ==
[~2017-05-06 05:27] MED LIST changes: -COZAAR100 MG PO; +COZAAR50 MG PO; -TOPROL XL200 MG PO; +TOPROL XL50 MG PO
[2017-05-06] MEDS ORDERED: K-TAB10 MEQ PO (06:38)
[2017-05-06] MEDS ORDERED: HYDRALAZINE HCL25 MG PO (06:40)
[2017-05-06] MEDS ORDERED: TRAZODONE HCL150 MG PO (06:42)
[2017-05-06] MEDS ORDERED: FERROUS SULF PO (06:42)
[2017-05-06] MEDS ORDERED: WELLBUTRIN SR150 MG PO (06:43)
[2017-05-06 06:45] LABS: BASOPHILS 0.2 % (0-2); EOSINOPHILS 2.7 % (0-7); LYMPHOCYTES 18.5 % (15-50); MCH 28.4 pg (26.0-34.0); MCHC 31.3 g/dL (31.0-37.0); MCV 90.9 fL (80.0-100.0); MEAN PLATELET VOLUME 11.6 fL (7.4-10.4); MONOCYTES 8.1 % (2-11); NEUTROPHILS 70.5 % (40-80); PLATELET COUNT 131 10x3/uL (130-400); RBC 3.52 10x6/uL (4.20-6.10); RDW 16.8 % (11.5-14.5); WBC 5.6 10x3/uL (4.8-10.8)
[2017-05-06 06:49] VITALS: BMI 29.9
[2017-05-06 06:59] LABS: APTT 30.4 SECONDS (22.8-39.4); INR 1.1 (0.85-1.17); PROTIME 14.1 SECONDS (11.6-15.0)
[2017-05-06 07:00] LABS: CALCIUM 8.8 mg/dL (8.5-10.1); CARBON DIOXIDE 24.9 mmol/L (21.0-32.0); CREATININE - SERUM 1.3 mg/dL (0.6-1.3); POTASSIUM - SERUM 3.9 mmol/L (3.5-5.1)
--- NOTE | 2017-05-06 11:10 | NUR ---
DISCHARGE INSTRUCTIONS REVIEWED, PATIENT DISCHARGED HOME VIA WHEELCHAIR TO PRIVATE VEHICLE WITH SPOUSE
--- NOTE | 2017-05-06 15:06 | NUR ---
0800-PATIENT STATES HE ATE BISCUITS, SAUSAGE AND PANCAKES AROUND 0500. HE DOES NOT HAVE A MAKING MACHINE CATCHER HOME. 0810-DR CHEN INFORMED. CANCEL CASE AND HAVE PATIENT CALL THE OFFICE TO RESCHEDULE.
--- NOTE | 2017-05-06 15:10 | NUR ---
0835 CORRECTION-DR RANKIN NOTIFIED.
--- NOTE | 2017-05-14 09:40 | OP ---
PATIENT NAME: ROSIBEL MCCOY MEDICAL RECORD: [id number] :47 LOCATION:D.OPS ADMISSION DATE: SURGEON: ORIANA RANKIN MD DATE OF OPERATION: 05/06/2017 PREOPERATIVE DIAGNOSIS: Radiation proctitis causing hematochezia. POSTOPERATIVE DIAGNOSIS: Radiation proctitis causing hematochezia. PROCEDURES: Flexible proctoscopy with ablation of the radiation proctitis utilizing the argon plasma systems administrator. SURGEON: Oriana Rankin MD WATERPROOFER HELPER: None. BLOOD LOSS: Minimal. ANESTHESIA: General. COMPLICATIONS: None. The risks, possible complications, and alternatives to the procedure were explained to the patient. He elected to proceed. OPERATIVE COURSE: The patient was conveyed to the operating room electively on 05/06/2017. General anesthesia was induced by the anesthesia staff. The patient was placed in the Chung position. A digital rectal examination was performed. A gastroscope was inserted through the anus. I examined the area of radiation proctitis. Contact bleeding occurred. The angioectasias were localized to an area just behind the prostate gland. All the angioectasias were ablated with the argon plasma systems administrator utilizing the right colon setting in the forced mode. I noted no residual angioectasias after the treatment. There was no bleeding after the area had been treated. The gastroscope was then withdrawn under direct vision. There is no need for the patient to follow up with me in my office. Should he develop recurrent bleeding in the future, he can call the office and we will put him on a schedule for another treatment. I told him that it would be normal for him to have some bleeding over the course of the next few weeks due to the operative procedure as the mucosa of the lower rectum sloughs off. TRANSINT:[id number] Voice Confirmation ID: [id number] DOCUMENT ID: [id number] ORIANA RANKIN MD at 0940 CC: DR. HOLLIS KIM and MOISES GOODEN [id number] DICTATION DATE: 05/06/17 1055 LANDSCAPING SPECIALIST: 05/06/17 1130 [facility] 05/06/17 [address] [place] [address]
== END 2017-05-06 08:20 | disposition home or self-care (01) ==
LOC: D.OPS 05:27 → D.PAN 08:00 → D.OPS 08:20 → D.PAN 05-07 08:00
PROVIDERS: Anesthesiology
DX: I10 Essential (primary) hypertension (principal); K62.7 Radiation proctitis; E11.9 Type 2 diabetes mellitus without complications; Z01.812 Encounter for preprocedural laboratory examination; K62.5 Hemorrhage of anus and rectum; Z01.818 Encounter for other preprocedural examination